=== PATIENT | female | born 1995 | race Hispanic/Latino ===

== ENCOUNTER 2017-10-08 19:29 | Emergency (ER) | payer BC ==
[2017-10-08] MEDS ORDERED: Tetracaine 0.5% Ophth (OR ONLY) ONE (20:29)
[2017-10-08] MEDS ORDERED: Fluorescein 1 mg Ophthalmic Strip ONE ×2 (20:30→20:33)
--- NOTE | 2017-10-08 21:17 | C.PDOC ---
History Of Present Illness Pt presents to ER with c/o of pain and tearing to her right eye s/p accidentally scratched eye with her own nail while pulling her hair away from her face [employer]. Denies eye discharge, headache, dizziness Time Seen by Provider: 10/08/17 20:15 Chief Complaint (Nursing): ENT Problem History Per: Patient History/Exam Limitations: no limitations Current Symptoms Are (Timing): Still Present Severity: Moderate Quality: Burning, "Pain" Wears Contact Lens?: No Past Medical History Vital Signs: Last Vital Signs Temp 98.8 F 10/08/17 19:41 Pulse 88 10/08/17 19:41 Resp 18 10/08/17 19:41 BP 116/82 10/08/17 19:41 Pulse Ox 100 10/08/17 19:41 - Medical History PMH: No Chronic Diseases Family History: States: Unknown Family Hx - Social History Hx Alcohol Use: Yes Hx Substance Use: No - Immunization History Hx Tetanus Toxoid Vaccination: No Hx Influenza Vaccination: No Hx Pneumococcal Vaccination: No Review Of Systems Constitutional: Negative for: Fever Eyes: Positive for: Pain, Other (tearing) Neurological: Negative for: Headache, Dizziness Physical Exam - Physical Exam Appears: Well, Non-toxic Skin: Normal Color Head: Atraumatic Eye(s): bilateral: Normal Inspection, PERRL, EOMI, Other (20/100 OD, 20/20 OS, linear corneal abrasion to lower part of cornea, no erythema, no FB) Neurological/Psych: Oriented x3 ED Course And Treatment O2 Sat by Pulse Oximetry: 100 Progress Note: Pt feels better with tetracaine drops VA now 20//30 OD and 20/20 OS after drops. Tobrex oint placed OD and pt will continue same BID x 3 days with motrin and ophto follow up. Return precautions were discussed Disposition Counseled Patient/Family Regarding: Diagnosis, Need For Followup, Rx Given - Disposition Referrals: Rafael De La Torre [Staff Provider] - Disposition: HOME/ ROUTINE Disposition Time: 21:22 Condition: STABLE Additional Instructions: Use tobrex ointment 2x daily x 3 days Tylenol or motrin for pain Use eye patch to protect from sun or light/ wear sunglasses Call for Eye appointment Return to ER if severe pain to eye, decrease vision, moderate headache or worse Instructions: Corneal Abrasion (DC) - Clinical Impression Clinical Impression: Corneal abrasion, right
[2017-10-08] MEDS ORDERED: Tobramycin 0.3% OPH OINT ONE (21:23)
[2017-10-08] MEDS ORDERED: Tobramycin 0.3% OPH OINT OD STA (22:11)
[2017-10-08 22:14] VITALS: BP 118/78; PULSE 83; RESP 20; TEMP 98; O2SAT 98
== END 2017-10-08 22:14 | disposition home or self-care (01) ==
LOC: C.ER 19:29
DX: S05.01XA Injury of conjunctiva and corneal abrasion without foreign body, right eye, initial encounter (principal); W50.4XXA Accidental scratch by another person, initial encounter